=== PATIENT | male | born 1955 | race African-American/Black ===

== ENCOUNTER 2023-06-25 23:15 | Emergency (ER) | payer MEDICARE, MEDICAID ==
[~2023-06-25] VITALS: Ht 190.5 cm; Wt 99.0 kg
[2023-06-25 23:35] VITALS: BP 115/71; PULSE 98; RESP 16; TEMP 98.5; O2SAT 98
[2023-06-25] MEDS ORDERED: ACETAMINOPHEN 325MG TABLET PO ONE (23:45)
[2023-06-25] MEDS ORDERED: GUAIFENESIN 600MG ER TABLET PO ONE (23:45)
== END 2023-06-26 06:49 | disposition home or self-care (01) ==
LOC: ER 23:15
DX: J02.9 Acute pharyngitis, unspecified (principal); R13.10 Dysphagia, unspecified; F15.10 Other stimulant abuse, uncomplicated
CPT/HCPCS: 71045; 99283